=== PATIENT | male | born 1995 | race Caucasian/White ===

== ENCOUNTER 2016-06-29 08:47 | Emergency (ER) | payer OTHER ==
[2016-06-29 08:58] VITALS: BP 128/77
== END 2016-06-29 11:37 | disposition home or self-care (01) ==
LOC: ED 08:47
DX: M54.5 Low back pain (principal); J45.909 Unspecified asthma, uncomplicated; F12.929 Cannabis use, unspecified with intoxication, unspecified; F10.20 Alcohol dependence, uncomplicated

== ENCOUNTER 2018-11-11 01:22 | Emergency (ER) | payer SELFPAY ==
[~2018-11-11] VITALS: Ht 185.4 cm; Wt 143.8 kg
[2018-11-11 01:33] VITALS: Ht 185.4 cm; Wt 143.8 kg
[2018-11-11 03:17] VITALS: BP 155/89
== END 2018-11-11 03:17 | disposition home or self-care (01) ==
LOC: ED 01:22
DX: J20.9 Acute bronchitis, unspecified (principal); J45.909 Unspecified asthma, uncomplicated
CPT/HCPCS: J7512

== ENCOUNTER 2018-12-19 07:54 | Emergency (ER) | payer OTHER | END 2018-12-19 09:08 | disposition other institution (70) | LOC: ED 07:54 | DX: Z02.89 Encounter for other administrative examinations (principal) ==

== ENCOUNTER 2018-12-19 07:54 | Emergency (ER) | payer SELFPAY ==
[~2018-12-19] VITALS: Ht 185.4 cm; Wt 129.3 kg
[2018-12-19 07:55] VITALS: Ht 185.4 cm; Wt 129.3 kg
[2018-12-19 09:08] VITALS: BP 122/74
== END 2018-12-19 09:08 | disposition other institution (70) ==
LOC: ED 07:54
DX: S09.8XXA Other specified injuries of head, initial encounter (principal); F15.10 Other stimulant abuse, uncomplicated; J45.909 Unspecified asthma, uncomplicated; W22.8XXA Striking against or struck by other objects, initial encounter; Y93.89 Activity, other specified; Y92.89 Other specified places as the place of occurrence of the external cause; Y99.8 Other external cause status

== ENCOUNTER 2018-12-20 03:37 | Emergency (ER) | payer SELFPAY ==
[~2018-12-20] VITALS: Ht 185.4 cm; Wt 136.5 kg
[2018-12-20 06:09] VITALS: BP 129/74
== END 2018-12-20 06:30 | disposition home or self-care (01) ==
LOC: ED 03:37
DX: S01.01XA Laceration without foreign body of scalp, initial encounter (principal); S16.1XXA Strain of muscle, fascia and tendon at neck level, initial encounter; R07.89 Other chest pain; J45.909 Unspecified asthma, uncomplicated; V43.52XA Car driver injured in collision with other type car in traffic accident, initial encounter; Y93.I9 Activity, other involving external motion; Y92.488 Other paved roadways as the place of occurrence of the external cause; Y99.8 Other external cause status
CPT/HCPCS: J1885; Q0092